=== PATIENT | female | born 1995 | race Caucasian/White ===

== ENCOUNTER 2022-01-05 21:39 | Emergency (ER) | payer OTHER, SELFPAY ==
[2022-01-05 22:08] VITALS: BP 124/89; PULSE 91; RESP 17; TEMP 36.7; O2SAT 100; BMI 27.1
[2022-01-05 22:31] LABS: Appearance Urine CLOUDY; Glucose Urine UA 250 MG/DL (NEG); Leukocyte Esterase Urine 1+ (NEG); Nitrite Urine POS (NEG); PH 6.5 (5.0-8.0); Specific Gravity - Urine 1.025 (1.005-1.025); UACC Culture Trigger YES; Urine Blood 3+ (NEG); Urine Ketones 5 MG/DL (NEG); Urine Protein 3+ MG/DL (NEG-TRACE)
[2022-01-05 22:32] LABS: Color Urine ORANGE
[2022-01-05 22:33] LABS: UPreg QC Valid YES; Urine Pregnancy NEGATIVE (NEGATIVE)
[2022-01-05 22:44] LABS: Bacteria Urine 1+ /LPF; RBC Urine 30-49 /HPF (0); Squamous Epithelial Cell Urine 1+ /LPF
--- NOTE | 2022-01-05 23:50 | ED.FEMALEGU ---
HPI - Female Genitourinary General Chief complaint: Urogenital-Female Stated complaint: UTI Time Seen by Provider: 01/05/22 21:55 Source: patient Mode of arrival: ambulatory Limitations: no limitations History of Present Illness HPI Narrative: 26-year-old female presents with UTI symptoms. MD elicited complaint: dysuria and UTI Onset (ago): week(s) (1) Location of symptoms: urethra Severity: moderate Female Urogenital Radiation: Non-Radiating Severity scale (1-10): 7 Quality of pain: burning and aching Consistency: intermittent and progressively worsening Vaginal discharge: none Vaginal bleeding: none Urinary symptoms: Dysuria, Frequency and Difficulty Urinating Exacerbating factors: urination Relieving factors: none Associated symptoms: abdominal pain and fever Treatment prior to arrival: OTC urinary analgesics and OTC vaginal cream Sexual activity: Yes Patient : No Related Data Previous Rx's Medication Instructions Recorded cephalexin 500 mg capsule 500 mg PO Q12H 7 Days #14 cap 01/05/22 phenazopyridine 200 mg tablet 200 mg PO TID PRN #9 tab 01/05/22 (Pyridium) Allergies Allergy/AdvReac Type Severity Reaction Status Date / Time No Known Allergies Allergy Verified 01/05/22 23:56 Review of Systems Review of Systems: Constitutional: No Fever, No Chills ENT/Mouth: No sore throat Eyes: No Eye Pain, No Swelling, No Redness Cardiovascular: No Chest Pain, No SOB Respiratory: No Cough, No Sputum, No Wheezing Gastrointestinal: positive Nausea, positive Vomiting, No Diarrhea, positive abdominal pain Genitourinary: positive Dysuria, positive urinary frequency, positive Hematuria, no Flank Pain, positive hesitancy Musculoskeletal: No joint pain, No Myalgias Skin: No Skin Lesions, No rash Neuro: No Weakness, No Numbness, No Headache Psych: No Anxiety/Panic, No Depression Heme/Lymph: No Bruising, No Lymphadenopathy Endocrine: No Polyuria, No Polydipsia Yes all other systems are reviewed and are negative [facility], [facility] Past Medical History Attestation statement: The following information was validated with the patient. Source: old records reviewed Social History Social History Advance Directives: No Advance Directives Information Provided: No Patient : No Physical Exam Vital Signs: Vital Signs: Last Vital Signs Temp 98.1 F 01/05/22 22:08 Pulse 91 01/05/22 22:08 Resp 17 01/05/22 22:08 BP 124/89 01/05/22 22:08 Pulse Ox 100 01/05/22 22:08 BMI result Body Mass Index 27.1 Appearance: Alert. Oriented X3. Mild distress. Eyes: Pupils equal, round and reactive to light. ENT: Pharynx normal. Neck: Normal inspection. Neck supple. CVS: Normal heart rate and rhythm. Pulses normal. Respiratory: No respiratory distress. Breath sounds normal. Abdomen: Soft and nontender. Skin: Skin warm and dry. Normal skin color. Normal skin turgor. Extremities: No lower extremity edema. Gait well-balanced well coordinated. Neuro: No motor deficit. No sensory deficit. Cranial nerves 2-12 intact. Course Course Course Narrative: 26-year-old female presents with approximately 1 week of urinary symptoms. Stated that she had been trying to treat herself for a suspected yeast infection however the [id number] medications were ineffective. Urinalysis completed while she was in the emergency department waiting room which is positive for nitrites leukocyte esterase and heme. Incidental report of having liposuction approximately 2 months ago. Patient is afebrile, appears nontoxic, vital signs are stable and within normal limits. Alert orient x4, articulate. Will treat with Keflex and Pyridium. Patient does not report any risk sexually transmitted infection. Patient verbalized understanding of and agrees to plan of care to discharge home. Verbalized understanding of signs and symptoms indicating need for emergent intervention MDM - Female Genitourinary Differential Diagnosis Differential diagnosis: Likely urinary tract infection Medical Records Attestation: I reviewed the patient's medical records. Lab Data Attestation: I reviewed the patient's lab results. Labs: Lab Results 01/05/22 01/05/22 Range/Units 22:14 22:14 Urine Color ORANGE A Urine Appearance CLOUDY Urine pH 6.5 (5.0-8.0) Ur Specific Crawford 1.025 (1.005-1.025) Urine Protein 3+ H (NEG-TRACE) MG/DL Urine Glucose (UA) 250 H (NEG) MG/DL Urine Ketones 5 (NEG) MG/DL Urine Blood 3+ H (NEG) Urine Nitrite POS H (NEG) Ur Leukocyte Esterase 1+ H (NEG) Urine RBC 30-49 H (0) /HPF Urine WBC 1-4 (0-4) /HPF Ur Squamous Epith Cells 1+ /LPF Urine Bacteria 1+ /LPF Urine Test NEGATIVE (NEGATIVE) Discharge Plan Discharge Clinical Impression: Urinary tract infection Patient Disposition: Home, Self-Care Instructions: Urinary Tract Infection in Women (DC) Additional Instructions: You were evaluated for urinary symptoms. Urinalysis indicates UTI. Please take Keflex 500 mg twice a day for the next 7 days. Use Pyridium for bladder spasms and dysuria. Drink plenty of fluids. If symptoms persist or worsen please return for evaluation. Thank you for choosing this emergency department for evaluation. Please follow-up with primary care physician as needed. Return to the emergency department for any new, concerning, or worsening symptoms. Prescriptions: New cephalexin 500 mg capsule 500 mg PO Q12H 7 Days Qty: 14 0RF phenazopyridine [Pyridium] 200 mg tablet 200 mg PO TID PRN (Reason: pain) Qty: 9 0RF
[2022-01-06] MEDS: Phenazopyridine HCL 200 MG TABLET PO (00:23)
[2022-01-06] MEDS: cephALEXin 500 MG CAPSULE PO (00:23)
== END 2022-01-06 00:34 | disposition home or self-care (01) ==
PROVIDERS: Emergency Provider Emergency Medicine
DX: N39.0 Urinary tract infection, site not specified (principal); R30.0 Dysuria
CPT/HCPCS: 81001; 81025; 87086; 87088; 87186; 99283; 99284